=== PATIENT | female | born 1965 | race African-American/Black ===

== ENCOUNTER 2019-01-05 08:58 | Emergency (ER) | payer MEDICAID ==
[~2019-01-05] VITALS: Ht 170.2 cm; Wt 120.0 kg
[2019-01-05] MEDS ORDERED: KETOROLAC 60MG/2ML VIAL IM ONE (09:45)
[2019-01-05] MEDS ORDERED: OXYCODONE HCL/ACETAMINOPHEN 5/325MG TABLET PO ONE (09:45)
[2019-01-05 12:55] VITALS: BP 161/75
== END 2019-01-05 12:56 | disposition home or self-care (01) ==
LOC: ER 08:58
DX: M54.5 Low back pain (principal); E78.00 Pure hypercholesterolemia, unspecified; I10 Essential (primary) hypertension; E78.5 Hyperlipidemia, unspecified; E03.9 Hypothyroidism, unspecified; Z90.710 Acquired absence of both cervix and uterus; Z98.890 Other specified postprocedural states
CPT/HCPCS: 93005; 96372; 99283; J1885